=== PATIENT | female | born 1945 | race Caucasian/White ===

== ENCOUNTER → 2017-08-13 | Outpatient (CLI) | payer OTHER ==
[~2017-08-13] MED LIST: CLOBETASOL PROP60 GM TP; FUROSEMIDE20 MG PO; LANSOPRAZOLE30 MG PO; MOBIC15 MG PO; NASONEX17 GM BOTH NARES; PREMARIN0.3 MG PO; PROAIR HFA8.5 GM IH; SYMBICORT60 INHALA1 IH; TRAMADOL HCL50 MG PO; TRIAMCINOLONE A15 GM TP; VALACYCLOVIR1000 MG PO; VITAMIN D-3 401 EACH PO; VITAMIN E600 UNIT PO; ZANTAC150 MG PO
== END | disposition home or self-care (01) ==
DX: Z01.818 Encounter for other preprocedural examination (principal); M17.11 Unilateral primary osteoarthritis, right knee; R26.2 Difficulty in walking, not elsewhere classified; M25.561 Pain in right knee; M25.661 Stiffness of right knee, not elsewhere classified; M62.81 Muscle weakness (generalized); Z74.1 Need for assistance with personal care
CPT/HCPCS: 97161 GP; 97165 GO; 97530 GP; 97535 GO; G8978 GP; G8979 GP; G8980 GP; G8987 GO; G8988 GO; G8989 GO

== ENCOUNTER 2017-09-15 22:08 | Inpatient (IN) | payer OTHER ==
[~2017-09-15] VITALS: Ht 160 cm; Wt 74.5 kg
[~2017-09-15 22:08] MED LIST changes: +IRON325 M1 PO; +LATANOPROST2.5 ML BOTH EYES
[2017-09-16 07:29] VITALS: BP 167/77
[2017-09-16 12:13] LABS: HEMATOCRIT 39.4 % (36.0-46.0); HEMOGLOBIN 12.8 G/DL (11.9-15.5); MCH 30.5 PG (29.0-34.0); MCHC 32.5 G/DL (30.0-36.0); MCV 93.8 FL (83-99); PLATELET COUNT 229 K/uL (156-360); RBC DIS.WIDTH-CV 13.8 % (11.8-14.6); RBC DIS.WIDTH-SD 46.8 % (39-53); WHITE BLOOD COUNT 6.6 K/uL (4.1-10.2)
[2017-09-16 12:53] VITALS: BP 145/78
[2017-09-16 16:11] VITALS: BP 138/81
[2017-09-16 20:12] VITALS: BP 118/69
[2017-09-16 23:53] VITALS: BP 135/66
[2017-09-17 04:30] VITALS: BP 136/68
[2017-09-17 04:57] LABS: HEMATOCRIT 34.5 % (36.0-46.0); MCV 91.3 FL (83-99)
[2017-09-17 05:11] LABS: CHLORIDE 106 mEq/L (99-109); SODIUM 137 mEq/L (136-147)
[2017-09-17 05:13] LABS: GLUCOSE 155 mg/dL (70-99)
[2017-09-17 05:17] LABS: CREATININE 0.9 mg/dL (0.6-1.3); GFR ESTIMATE (CALCULATED) > 59 mL/min/
[2017-09-17 05:18] LABS: UREA NITROGEN (BUN) 10 mg/dL (9-23)
[2017-09-17 07:31] VITALS: BP 157/75
[2017-09-17] MEDS ORDERED: OXYCODONE HCL5 MG PO (08:32)
[2017-09-17] MEDS ORDERED: LOVENOX40 MG/0.4 SC (08:32)
[2017-09-17 11:54] VITALS: BP 144/75
[2017-09-17 15:35] VITALS: BP 144/63
[2017-09-17 20:10] VITALS: BP 122/58
[2017-09-18 00:03] VITALS: BP 116/73
[2017-09-18 04:23] VITALS: BP 126/74
[2017-09-18 06:49] LABS: HEMATOCRIT 36.4 % (36.0-46.0); HEMOGLOBIN 11.9 G/DL (11.9-15.5); MCV 92.9 FL (83-99)
[2017-09-18 07:56] VITALS: BP 121/61
[2017-09-18 12:06] VITALS: BP 123/67
== END 2017-09-18 14:20 | DRG 470 ==
LOC: ENRESERV 22:08 → 2SOUTH 09-16 06:42 → 3WEST 09-16 12:42 → 2SOUTH 09-16 13:43 → 3WEST 09-18 14:20
PROVIDERS: Orthopaedic Surgery
PROC: 0SRC0J9 Replacement of Right Knee Joint with Synthetic Substitute, Cemented, Open Approach (ICD-10-PCS; principal; 2017-09-16)
DX: M17.11 Unilateral primary osteoarthritis, right knee (principal); I10 Essential (primary) hypertension; E78.00 Pure hypercholesterolemia, unspecified; J45.909 Unspecified asthma, uncomplicated; K21.9 Gastro-esophageal reflux disease without esophagitis; H40.9 Unspecified glaucoma; Z90.711 Acquired absence of uterus with remaining cervical stump; Z88.5 Allergy status to narcotic agent; Z87.891 Personal history of nicotine dependence
CPT/HCPCS: 73560; 80048; 85014; 85018; 85027; 94640; 94799; 97530 GO; C1713; J0690; J1650; J2250; J2405; J2765; J2795; J7050